=== PATIENT | male | born 1955 | race Caucasian/White ===

== ENCOUNTER → 2018-03-23 | Outpatient (CLI) | payer OTHER | LOC: BMCIMAGING 12:09 | PROVIDERS: ATTEND Family Medicine | DX: S62.324A Displaced fracture of shaft of fourth metacarpal bone, right hand, initial encounter for closed fracture (principal); S62.326A Displaced fracture of shaft of fifth metacarpal bone, right hand, initial encounter for closed fracture; Y93.9 Activity, unspecified ==

== ENCOUNTER 2018-09-02 18:38 | Observation (INO) | payer OTHER ==
[2018-09-02] MEDS ORDERED: NS 1,000 ML IV ONE (18:55)
[2018-09-02 19:15] LABS: PLATELET COUNT 223 10^3/uL (150-400)
[2018-09-02] MEDS ORDERED: IOPAMIDOL (ISOVUE-300) 100 ML BTL ONE (19:18)
--- NOTE | 2018-09-02 19:23 | EDPHY ---
H & P Time Seen by Provider: 09/02/18 18:49 HPI/ROS: HPI Right lower abdominal pain. Sent from Urgent Care. 63-year-old male by private vehicle with his . This patient reports that yesterday he developed periumbilical pain. He describes this as cramping and achy in nature. Since yesterday the pain has migrated to his right lower quadrant and the right side of his abdomen. He denies any gross hematuria. No previous surgical history. Last meal was at approximately 5:00 p.m. And this consisted of a piece of toast. He has had no urinary complaints. Last bowel movement was this morning. This was normal. No bloody or melenic stool. ROS: Constitutional: No fever, no chills. No weakness. Eyes: No discharge. No changes in vision. ENT: No sore throat. No nasal congestion or rhinorrhea. Respiratory: No cough. No shortness of breath. Cardiac: No chest pain, no palpitations. Gastrointestinal: As above, no vomiting, no diarrhea. Genitourinary: No hematuria. No dysuria or increased frequency with urination. Musculoskeletal: No back pain. No neck pain. No myalgias or arthralgias. Skin: No rashes. Neurological: No headache. No focal weakness or altered sensation. Past medical history: Hernia repair, right hand surgery. Social history: Nonsmoker. Here with his . No alcohol. Physical Exam: General Appearance: Alert, no distress. This patient is responding to questions appropriately and in full sentences. This patient appears well- hydrated and well-nourished. Eyes: Pupils equal and round no pallor or injection. No lid edema, erythema or injection. Respiratory: There are no retractions, lungs are clear to auscultation with good air movement bilaterally. Cardiovascular: Regular rate and rhythm. No murmur. Gastrointestinal: Abdomen is soft with mild to moderate right lower quadrant tenderness on palpation and right lateral mid abdominal tenderness on palpation , no masses, bowel sounds normal. No focal tenderness at McBurney's point. No Alberto sign. Neurological: Motor sensory function is grossly intact. Cranial nerves are normal. Gait is normal. Skin: Warm and dry, no rashes. Musculoskeletal: Neck is supple and nontender. Extremities are symmetrical. All joints range without pain or impingement. Psychiatric: No agitation. No depression. Database: EKG: Imaging: CT abdomen and pelvis with IV contrast: Acute appendicitis. 13 mm dilation. No perforation or abscess. Results discussed with staff radiologist Dr. Fredrick Boyd. Procedures: Emergency department course: Triage vital signs reviewed and are normal. IV was placed. The patient was started on IV normal saline with 500 cc to 1 L to be given over the next hour. He will be given IV Zofran and hydromorphone as needed for pain. Right now he is declining pain medication. After normal creatinine verified he will be sent for CT imaging to evaluate for appendicitis verses ureterolithiasis. 8:00 p.m., the patient was re-evaluated. He is comfortable at this time. Results of CT scan and diagnosis of appendicitis discussed with him. He will be given IV Mefoxin. General surgery paged. 8:15 p.m., spoke with on-call general surgeon Dr. Yannick Cevallos. He accepts the patient for admission for operative management of acute appendicitis. He will see the patient in the emergency department shortly. The patient's remaining emergency department course under my care has been uneventful. The patient was admitted under the care of Dr. Yannick Cevallos in stable condition. Differential Diagnosis: The differential diagnosis on this patient includes but is not limited to appendicitis, ureterolithiasis, constipation. This represents a partial list of diagnoses considered. These considerations are based on history, physical exam, past history, reassessment and diagnostic testing. Smoking Status: Never smoked Constitutional: Initial Vital Signs Temperature (C) 37.1 C 09/02/18 18:44 Heart Rate 73 09/02/18 18:44 Respiratory Rate 16 09/02/18 18:44 Blood Pressure 135/83 H 09/02/18 18:44 O2 Sat (%) 94 09/02/18 18:44 O2 Delivery Mode Room Air Allergies/Adverse Reactions: No Known Allergies Allergy (Unverified 09/02/18 18:44) Home Medications: Medication Instructions Recorded NK [No Known Home Meds] 09/02/18 Medical Decision Making - Diagnostics Imaging Results: Imaging Impressions Abdomen CT 09/02/18 19:11 Impression: Appendicitis. No perforation or abscess. Findings called to the Emergency Department and conveyed to physician, Puma Mcneil MD, on 09/02/2018, 19:56. - Data Points Laboratory Results: Laboratory Results 09/02/18 19:00 09/02/18 19:00 09/02/18 09/02/18 09/02/18 19:15 19:07 19:00 WBC RBC Hgb POC Hgb 16.0 gm/dL gm/dL (13.7-17.5) Hct POC Hct 47 % % (40-51) MCV MCH MCHC RDW Plt Count MPV Neut % (Auto) Lymph % (Auto) Graham % (Auto) Eos % (Auto) Baso % (Auto) Nucleat RBC Rel Count Absolute Neuts (auto) Absolute Lymphs (auto) Absolute Monos (auto) Absolute Eos (auto) Absolute Basos (auto) Absolute Nucleated RBC Immature Gran % Immature Gran # POC Sodium 135 mEq/L mEq/L (135-145) Sodium 132 mEq/L L mEq/L (135-145) POC Potassium 3.8 mEq/L mEq/L (3.3-5.0) Potassium 3.9 mEq/L mEq/L (3.5-5.2) POC Chloride 99 mEq/L mEq/L (97-110) Chloride 99 mEq/L mEq/L (97-110) Carbon Dioxide 22 mEq/l mEq/l (22-31) POC Total CO2 22 mEq/L mEq/L (22-31) Anion Gap 11 mEq/L mEq/L (6-14) POC BUN 15 mg/dL mg/dL (7-23) BUN 15 mg/dL mg/dL (7-23) Creatinine 0.9 mg/dL mg/dL (0.7-1.3) POC Creatinine 0.9 mg/dL mg/dL (0.7-1.3) Estimated GFR > 60 Glucose 119 mg/dL H mg/dL (70-100) POC Glucose 127 mg/dL H mg/dL (70-100) Calcium 9.0 mg/dL mg/dL (8.5-10.4) Urine Color YELLOW Urine Appearance CLEAR Urine pH 6.0 (5.0-7.5) Ur Specific Corry 1.015 (1.002-1.030) Urine Protein NEGATIVE (NEGATIVE) Urine Ketones NEGATIVE (NEGATIVE) Urine Blood 1+ H (NEGATIVE) Urine Nitrate NEGATIVE (NEGATIVE) Urine Bilirubin NEGATIVE (NEGATIVE) Urine Urobilinogen NEGATIVE EU EU (0.2-1.0) Ur Leukocyte Esterase NEGATIVE (NEGATIVE) Urine RBC 1-3 /hpf /hpf (0-3) Urine WBC 0-1 /hpf /hpf (0-3) Ur Epithelial Cells NONE SEEN /lpf /lpf (NONE-1+) Urine Mucus TRACE /lpf /lpf (NONE-1+) Urine Glucose NEGATIVE (NEGATIVE) 09/02/18 19:00 WBC 13.06 10^3/uL H 10^3/uL (3.80-9.50) RBC 5.13 10^6/uL 10^6/uL (4.40-6.38) Hgb 15.6 g/dL g/dL (13.7-17.5) POC Hgb Hct 44.3 % % (40.0-51.0) POC Hct MCV 86.4 fL fL (81.5-99.8) MCH 30.4 pg pg (27.9-34.1) MCHC 35.2 g/dL g/dL (32.4-36.7) RDW 12.4 % % (11.5-15.2) Plt Count 223 10^3/uL 10^3/uL (150-400) MPV 9.8 fL fL (8.7-11.7) Neut % (Auto) 78.2 % H % (39.3-74.2) Lymph % (Auto) 9.9 % L % (15.0-45.0) Graham % (Auto) 11.3 % % (4.5-13.0) Eos % (Auto) 0.1 % L % (0.6-7.6) Baso % (Auto) 0.3 % % (0.3-1.7) Nucleat RBC Rel Count 0.0 % % (0.0-0.2) Absolute Neuts (auto) 10.22 10^3/uL H 10^3/uL (1.70-6.50) Absolute Lymphs (auto) 1.29 10^3/uL 10^3/uL (1.00-3.00) Absolute Monos (auto) 1.47 10^3/uL H 10^3/uL (0.30-0.80) Absolute Eos (auto) 0.01 10^3/uL L 10^3/uL (0.03-0.40) Absolute Basos (auto) 0.04 10^3/uL 10^3/uL (0.02-0.10) Absolute Nucleated RBC 0.00 10^3/uL 10^3/uL (0-0.01) Immature Gran % 0.2 % % (0.0-1.1) Immature Gran # 0.03 10^3/uL 10^3/uL (0.00-0.10) POC Sodium Sodium POC Potassium Potassium POC Chloride Chloride Carbon Dioxide POC Total CO2 Anion Gap POC BUN BUN Creatinine POC Creatinine Estimated GFR Glucose POC Glucose Calcium Urine Color Urine Appearance Urine pH Ur Specific Corry Urine Protein Urine Ketones Urine Blood Urine Nitrate Urine Bilirubin Urine Urobilinogen Ur Leukocyte Esterase Urine RBC Urine WBC Ur Epithelial Cells Urine Mucus Urine Glucose Medications Given: Discontinued Medications Sodium Chloride (Ns) 1,000 mls @ 0 mls/hr IV EDNOW ONE; Wide Open PRN Reason: Protocol Stop: 09/02/18 18:56 Last Admin: 09/02/18 19:03 Dose: 1,000 mls Point of Care Test Results: Chemistry 09/02/18 19:07 POC Sodium 135 mEq/L mEq/L (135-145) POC Potassium 3.8 mEq/L mEq/L (3.3-5.0) POC Chloride 99 mEq/L mEq/L (97-110) POC Total CO2 22 mEq/L mEq/L (22-31) POC BUN 15 mg/dL mg/dL (7-23) POC Creatinine 0.9 mg/dL mg/dL (0.7-1.3) POC Glucose 127 mg/dL H mg/dL (70-100) ISTAT H&H 09/02/18 19:07 POC Hgb 16.0 gm/dL gm/dL (13.7-17.5) POC Hct 47 % % (40-51) Departure - Departure Disposition: [facility] [place] Inpatient Acute Clinical Impression: Lower abdominal pain, Acute appendicitis Referrals: Zoë Savage MD [Primary Care Provider] - As per Instructions
[2018-09-02] MEDS ORDERED: cefOXitin SODIUM 2 GM in NS 100 ML IV ONE (20:08)
--- NOTE | 2018-09-02 21:18 | PDANEPAE ---
ANE History of Present Illness acute appendicitis for lap appy ANE Past Medical History - Cardiovascular History Hx Hypertension: No Hx Arrhythmias: No Hx Chest Pain: No Hx Coronary Artery / Peripheral Vascular Disease: No Hx CHF / Valvular Disease: No Hx Palpitations: No - Pulmonary History Hx COPD: No Hx Asthma/Reactive Airway Disease: No Hx Recent Upper Respiratory Infection: No Hx Oxygen in Use at Home: No Hx Sleep Apnea: No - Endocrine History Hx Diabetes: No Hypothyroid: No Hyperthyroid: No Obesity: no ANE Review of Systems Review of systems is: negative Review of Systems: - Exercise capacity Exercise capacity: >=4 METS ANE Patient History - Allergies Allergies/Adverse Reactions: No Known Allergies Allergy (Verified 09/02/18 20:11) - Home Medications Home medications: home medication list seen and reviewed Home Medications: Ibuprofen [Motrin (*)] 400 mg PO DAILY PRN 09/02/18 [Last Taken 09/02/18] - NPO status NPO Since - Liquids (Date): 09/02/18 NPO Since - Liquids (Time): 17:00 NPO Since - Solids (Date): 09/02/18 NPO Since - Solids (Time): 17:00 - Anes Hx Anes Hx: no prior problems - Smoking Hx Smoking Status: Never smoked Marijuana use: No - Alcohol Use Alcohol Use: Occasionally ANE Labs/Vital Signs - Labs Result Diagrams: 09/02/18 19:00 09/02/18 19:00 - Vital Signs Blood Pressure: 128/75 Heart Rate: 68 Respiratory Rate: 18 O2 Sat (%): 94 Height: 190.5 cm Weight: 99.79 kg ANE Physical Exam - Airway Neck exam: FROM Mallampati Score: Class 1 Mouth exam: normal dental/mouth exam - Pulmonary Pulmonary: no respiratory distress - Cardiovascular Cardiovascular: regular rate and rhythym - ASA Status ASA Status: II, E ANE Anesthesia Plan Anesthesia Plan: general endotracheal anesthesia
[2018-09-02] MEDS ORDERED: MIDAZOLAM 2 MG/2 ML VIAL IVP ONE (21:19)
[2018-09-02] MEDS ORDERED: PROPOFOL 200 MG/20 ML VIAL ONE (21:25)
[2018-09-02] MEDS ORDERED: fentaNYL 100 MCG/2 ML INJ ONE ×2 (21:25)
[2018-09-02] MEDS ORDERED: BUPIVACAINE/EPI 0.5% 30 ML SDV ONE (21:27)
[2018-09-02] MEDS ORDERED: DEXAMETHASONE 4 MG/ML VIAL ONE (21:28)
[2018-09-02] MEDS ORDERED: SUGAMMADEX SODIUM 200 MG/2 ML VIAL IVP ONE (21:28)
[2018-09-02] MEDS ORDERED: ROCURONIUM 50 MG/5 ML VIAL ONE ×2 (21:28→22:32)
[2018-09-02] MEDS ORDERED: ONDANSETRON 4 MG/2 ML VIAL ONE (21:28)
[2018-09-02] MEDS ORDERED: LR 1,000 ML IV ONE (21:30)
[2018-09-02] MEDS ORDERED: LIDOCAINE 2% 2 ML INJ ONE ×2 (21:30)
[2018-09-02] MEDS ORDERED: SUCCINYLCHOLINE CHLORIDE 200 MG/10 ML SYR IVP ONE (21:35)
[2018-09-02] MEDS ORDERED: MIDAZOLAM 2 MG/2 ML VIAL ONE (21:38)
--- NOTE | 2018-09-02 21:49 | GHP ---
[f rep st] HISTORY AND PHYSICAL DATE OF ADMISSION: 09/02/2018 CHIEF COMPLAINT: Right lower quadrant pain. PRESENT ILLNESS: A 63-year-old male with 36 hours' abdominal pain on the right side. No nausea or v omiting. CT scan is definitive showing inflammation around the appendix, which is somewhat higher th an usual, as well as an appendicolith. White blood count is elevated at 13,000. ALLERGIES: None. CURRENT MEDICATIONS: None. PREVIOUS SURGERY: Right hand, umbilical hernia. REVIEW OF SYSTEMS: Denies asthma, heart trouble, diabetes, epilepsy, rheumatic fever. SOCIAL HISTORY: Nonsmoker. No alcohol use. . Does [employer]. PHYSICAL EXAM: GENERAL: Mildly obese male. HEENT: Within normal limits. LUNGS: Clear. HEART: Normal S1, S2 without murmur. ABDOMEN: Soft, tender in the right side. Mild rebound. EXTREMITIES: Unremarkable. NEUROLOGIC: Unremarkable. ASSESSMENT: Acute appendicitis, no sign of rupture. RECOMMENDATIONS: Laparoscopic appendectomy. Risks and benefits of infection, bleeding, etc., were e xplained to the patient and his . /[id number]/MODL
[2018-09-02] MEDS ORDERED: DIAZEPAM 5 MG/ML 1 ML SYR IVP PRN (22:00)
[2018-09-02] MEDS ORDERED: PROMETHAZINE HCL 25 MG/ML INJ IVP PRN (22:00)
[2018-09-02] MEDS ORDERED: oxyCODONE IR 5 MG TAB PO PRN (22:00)
[2018-09-02] MEDS ORDERED: fentaNYL 100 MCG/2 ML INJ IVP PRN (22:00)
[2018-09-02] MEDS ORDERED: ACETAMINOPHEN 500 MG TAB PO PRN (22:00)
[2018-09-02] MEDS ORDERED: METOCLOPRAMIDE 10 MG/2 ML VIAL IVP PRN (22:00)
[2018-09-02] MEDS ORDERED: PHENYLEPHRINE HCL 100 MCG/ML SYR IVP PRN (22:00)
[2018-09-02] MEDS ORDERED: LR 500 ML IV PRN (22:00)
[2018-09-02] MEDS ORDERED: ALBUTEROL 3 ML DEYVIAL IH PRN (22:00)
[2018-09-02] MEDS ORDERED: HYDROCODONE/APAP 5/325 TAB PO PRN (22:00)
[2018-09-02] MEDS ORDERED: HYDROmorphONE/DILAUDID 1 MG/ML INJ IVP PRN (22:00)
[2018-09-02] MEDS ORDERED: NALOXONE HCL 0.4 MG/ML INJ IVP PRN (22:00)
[2018-09-02] MEDS ORDERED: LABETALOL HCL 5 MG/ML 20 ML MDV IVP PRN (22:00)
[2018-09-02] MEDS ORDERED: ONDANSETRON 4 MG/2 ML VIAL IVP PRN ×2 (22:00→22:43)
--- NOTE | 2018-09-02 22:00 | POSTANESTH ---
Post Anesthetic Evaluation Cardiovascular Status: Normal, Stable Respiratory Status: Normal, Stable Level of Consciousness/Mental Status: Can Participate in Eval, Alert and Oriented Pain Control: Adequate, Prn Tx Ordered Nausea/Vomiting Control: Adequate, Prn Tx Ordered Complications Possibly Related to Anesthesia: None Noted
--- NOTE | 2018-09-02 22:43 | POSTOPPROG ---
Post Op Note Date of Operation: 09/02/18 Surgeon: Yannick Cevallos Pre-op Diagnosis: acute appy Post-op Diagnosis: same Indication: same Procedure: laparoscopic appendectomy Findings: acute supporative appy Inf/Abcess present in the surg proc area at time of surgery?: Yes Depth: Organ Space EBL: Minimal
--- NOTE | 2018-09-02 22:59 | GOP ---
[f rep st] OPERATIVE REPORT DATE OF OPERATION: 09/02/2018 SURGEON: Yannick Cevallos MD PREOPERATIVE DIAGNOSIS: Acute appendicitis. POSTOPERATIVE DIAGNOSIS: Acute appendicitis. PROCEDURE PERFORMED: Laparoscopic appendectomy. FINDINGS: INDICATIONS: This is a 63-year-old male with acute appendicitis. DESCRIPTION OF PROCEDURE: Under general anesthetic, the abdomen was scrubbed with Betadine and drape d in the usual sterile fashion. A 10 mm port was placed just to the left of the umbilicus after achi eving a pneumoperitoneum with a Veress needle. Two 5 mm ports were placed elsewhere. The patient wa s positioned head down, left side down and the small bowel was pulled away from the cecal area. The appendix was indurated, bound down in the retroperitoneum, but eventually lifted up enough that it co uld be amputated with an Endo-FAISAL blue staple cartridge at its base. It was then lifted up and the m esoappendix harvested in a retrograde fashion with the Harmonic scalpel. The appendix was placed in an Endopouch and eventually retrieved. There was no significant bleeding. Irrigation in the right l ower quadrant showed no bleeding. Gas and fluid were vented from the abdomen. The fascial defect th rough the left rectus muscle was closed with 0 Vicryl, skin incisions all with 4-0 Vicryl. The patie nt tolerated the procedure well. /[id number]/MODL
[2018-09-02] MEDS ORDERED: LR 1,000 ML IV SCH (23:00)
[2018-09-03] MEDS: cefOXitin SODIUM 2 GM in NS 100 ML IV SCH ×2 (02:11→08:25)
--- NOTE | 2018-09-03 07:05 | GDS ---
[f rep st] DISCHARGE SUMMARY PRESENT ILLNESS: Patient was admitted with acute appendicitis. He underwent a laparoscopic appendec johan. Much improved in the morning. Discharged home. Follow up with Dr. Cevallos in 10 days. /[id number]/MODL
[2018-09-03 08:03] VITALS: BP 121/77
== END 2018-09-03 11:00 | disposition home or self-care (01) ==
LOC: F3E 23:22
PROVIDERS: ADMIT Surgery; ATTEND Surgery
PROC: 0DTJ4ZZ Resection of Appendix, Percutaneous Endoscopic Approach (ICD-10-PCS; principal; 2018-09-02 21:45)
DX: K35.80 Unspecified acute appendicitis (principal)
CPT/HCPCS: 44970; 74177; 96361; 96374; 96375; 96376; 99285; G0378; 82435-PO; 82565-PO; 82947-PO; 84132-PO; 84295-PO; 84520-PO; 85014-ER; J0330; J0694; J1100; J2250; J2405; J2704; J3010; Q9967